=== PATIENT | female | born 1995 | race Caucasian/White ===

== ENCOUNTER 2018-04-29 03:17 | Emergency (ER) | payer BC ==
[~2018-04-29] VITALS: Ht 167.6 cm; Wt 71.3 kg
[2018-04-29 03:19] VITALS: BP 120/70
[2018-04-29] MEDS ORDERED: BENZOCAINE 20% SPRAY 0.5ML ONE (03:40)
[2018-04-29] MEDS ORDERED: LIDOCAINE-MPF 1%, 5ML ONE (03:40)
[2018-04-29] MEDS ORDERED: DEXAMETHASONE 4 MG TABLET ONE (03:40)
[2018-04-29] MEDS ORDERED: ONDANSETRON ODT 4 MG ONE (03:40)
[2018-04-29] MEDS ORDERED: OXYcodone/APAP 5/325MG TABLET ONE (03:41)
[2018-04-29] MEDS ORDERED: IBUPROFEN 200 MG TABLET ONE (03:41)
[2018-04-29] MEDS ORDERED: OXYcodone/APAP 5/325MG TABLET PO ONE (04:00)
[2018-04-29] MEDS ORDERED: IBUPROFEN 200 MG TABLET PO ONE (04:00)
[2018-04-29] MEDS ORDERED: BENZOCAINE AEROSOL SPRAY 20%, 60ML TP ONE (04:00)
[2018-04-29] MEDS ORDERED: PLEASE ENTER ALLERGIES MC SCH (04:00)
[2018-04-29] MEDS ORDERED: ONDANSETRON ODT 8 MG PO ONE (04:00)
[2018-04-29] MEDS ORDERED: LIDOCAINE 1%, 10ML INFIL ONE (04:00)
[2018-04-29] MEDS ORDERED: DEXAMETHASONE 4 MG TABLET PO ONE (04:00)
[2018-04-29] MEDS ORDERED: AMOXICILLIN/CLAV 875-125MG TABLET PO ONE (04:30)
[2018-04-29] MEDS ORDERED: AMOXICILLIN/CLAV 875-125MG TABLET ONE (04:30)
== END 2018-04-29 04:47 ==
LOC: ED 04:41
DX: J36 Peritonsillar abscess (principal); R07.0 Pain in throat
CPT/HCPCS: 42700; 87070; 87205; 99284; Q0162; 87147

== ENCOUNTER 2018-07-25 14:52 | Observation (INO) | payer BC ==
[~2018-07-25] VITALS: Ht 167.6 cm; Wt 66.0 kg
--- NOTE | 2018-07-25 14:55 | NUR ---
patient MARY POSADA from home for apparent overdose, this RN took report from medic who has informed that the patient's roommate spoke with her on the phone at 1400 hrs, and the patient seemed normal then. EMS arrived at the home and found the patient unresponsive with pills scattered around her, patient stating that she took a "handful" but unable to specify quantities. EMS gathered the pills and brought them in, with partial bottles of 5/325 Percocet, 5/325 Cowarts, 600 mg Ibuprofen. Patient has stable vital signs on room air, iv started by ALBINO
--- NOTE | 2018-07-25 15:24 | NUR ---
this RN has spoken with patient's mother (patient has given permission to share information with family members), patient's mother is headed to [place]. Patient continues to have stable vital signs, respirations 14/min and 95% on room air, lab draw at bedside now, NADN, PWD, 2+ pulses throughout, no acute changes.
--- NOTE | 2018-07-25 15:25 | NUR ---
HOB at ~60 degrees, call light in reach.
[2018-07-25 16:11] LABS: BASOPHILS # (AUTO) 0.05 x10^3/uL (0-0.1); BASOPHILS % (AUTO) 1 % (0-1); EOSINOPHILS # (AUTO) 0.21 x10^3/uL (0-0.4); EOSINOPHILS % (AUTO) 2 % (1-7); LYMPHOCYTES % (AUTO) 29 % (22-44); MD NO; MEAN CORPUSCULAR HEMOGLOBIN 29.1 pg (27.0-34.8); MEAN CORPUSCULAR HGB CONC 33.9 g/dL (32.4-35.8); MEAN PLATELET VOLUME 9.9 fL (7.4-10.4); MONOCYTES # (AUTO) 0.54 x10^3/uL (0.2-0.8); MONOCYTES % (AUTO) 6 % (2-9); NEUTROPHILS # (AUTO) 6.16 x10^3/uL (1.8-6.8); NEUTROPHILS % (AUTO) 63 % (42-75); PLATELET COUNT 263 x10^3/uL (130-400); RED BLOOD COUNT 5.05 x10^6/uL (3.82-5.3); RED CELL DISTRIBUTION WIDTH 12.6 % (9.6-15.2)
--- NOTE | 2018-07-25 16:11 | NUR ---
patient contineus to rest in bed safely, friends and roommates at bedside, POC discussed with MD Nguyen, he is ok with visitors, patient is in gown, does not have cell phone available to her. PWD, Respirations even and unlabored, is AOx4 and considerably more alert than upon arrival. VSS on room air, call light in reach, all needs addressed at this time.
[2018-07-25 16:15] LABS: ALBUMIN 3.8 g/dL (3.4-5.0); ANION GAP 8 mmol/L (5-15); CALCIUM 8.9 mg/dL (8.5-10.1); CHLORIDE 110 mmol/L (98-107)
[2018-07-25 16:22] LABS: ALANINE AMINOTRANSFERASE 26 U/L (12-78); ALKALINE PHOSPHATASE 74 U/L (45-117); BILIRUBIN,TOTAL 0.6 mg/dL (0.2-1.0); TOTAL PROTEIN 6.9 g/dL (6.4-8.2)
[2018-07-25 16:23] LABS: SALICYLATE LEVEL < 1.7 mg/dL (2.8-20.0)
[2018-07-25 16:27] LABS: ACETAMINOPHEN 13 mcg/mL (10-30)
--- NOTE | 2018-07-25 17:40 | NUR ---
patient safe in bed, family at bedside, vss on room air, aox4 and reports she is near baseline neuro status, "just a little drowsy", neuro assessment WDL. call light in reach.
--- NOTE | 2018-07-25 18:48 | NUR ---
Report from Frankie Sepulveda RN.
--- NOTE | 2018-07-25 18:49 | NUR ---
Urine sent to lab.
--- NOTE | 2018-07-25 19:30 | NUR ---
Provided with meal tray.
[2018-07-25 19:34] LABS: AMPHETAMINE SCREEN, URINE Negative (Negative); BARBITURATE SCREEN, URINE Negative (Negative); BENZODIAZEPINE SCREEN, URINE Negative (Negative); CANNABINOID SCREEN, URINE Negative (Negative); COCAINE SCREEN, URINE Negative (Negative); METHADONE SCREEN, URINE Negative (Negative); OPIATE SCREEN, URINE Positive (Negative)
--- NOTE | 2018-07-25 20:32 | NUR ---
Mother at bedside visiting with patient.
--- NOTE | 2018-07-25 21:15 | NUR ---
Resting in [facility]. No needs.
--- NOTE | 2018-07-25 21:46 | NUR ---
[facility] report received from RNCayla. Pt aware of plan to admit.
--- NOTE | 2018-07-25 21:55 | NUR ---
Report to GLENN Bowens.
--- NOTE | 2018-07-25 21:57 | NUR ---
PT REQUESTING THAT PARENT'S PHONE NUMBERS BE LISTED IN CHART. MOTHER CYN DENSON: [phone] FATHER DANA DENSON: [phone]
[2018-07-25] MEDS ORDERED: DOCUSATE 100 MG CAPSULE PO PRN (22:00)
[2018-07-25 22:57] VITALS: BP 104/72
== END 2018-07-26 00:15 ==
LOC: ED 19:01 → INTOOBSV 19:15 → EDIP 19:15 → 2N 22:06
PROVIDERS: ADMIT Internal Medicine; ATTEND Internal Medicine
DX: T14.91XA Suicide attempt, initial encounter (principal); T40.2X2A Poisoning by other opioids, intentional self-harm, initial encounter; F32.9 Major depressive disorder, single episode, unspecified; T39.312A Poisoning by propionic acid derivatives, intentional self-harm, initial encounter; Y92.89 Other specified places as the place of occurrence of the external cause; Y93.89 Activity, other specified; Y99.8 Other external cause status
CPT/HCPCS: 36415; 80053; 80307; 80329; 84703; 85025; 93005; 99284; G0378; 99285; G0480